=== PATIENT | female | born 1990 | race Caucasian/White ===

== ENCOUNTER 2025-04-29 09:32 | Emergency (ER) | payer OTHER ==
[~2025-04-29] VITALS: Ht 154.9 cm; Wt 75.0 kg
[2025-04-29 09:43] VITALS: BP 148/84; PULSE 87; RESP 18; TEMP 98.4; O2SAT 99
[2025-04-29 10:08] LABS: COVID AG,FIA SOURCE NASAL SWAB
[2025-04-29 10:17] LABS: PLATELET COUNT (AUTO) 204 K/uL (150-450); RED BLOOD CELL COUNT(AUTO) 4.55 MIL/uL (4.00-5.20); RED CELL DISTRIBUTION WIDTH 13.4 % (11.5-14.5); WHITE BLOOD COUNT (AUTO) 5.6 K/uL (4.5-11.0)
[2025-04-29 10:20] LABS: CALCIUM, TOTAL 8.5 mg/dL (8.8-10.5); CREATININE 0.65 mg/dL (0.60-1.30); GLOMERULAR FILTR. RATE CALC > 60 mL/min (>60); GLUCOSE,RANDOM 97 mg/dL (70-110); SODIUM SERUM 144 mmol/L (136-145); UREA NITROGEN, BLOOD 10 mg/dL (7-18)
[2025-04-29 10:28] LABS: SARS-COV2 (COVID) ANTIGEN,FIA Negative (Negative)
== END 2025-04-29 11:04 | disposition home or self-care (01) ==
LOC: EMS 09:32
DX: F31.9 Bipolar disorder, unspecified (principal); G47.00 Insomnia, unspecified; F41.9 Anxiety disorder, unspecified; F12.90 Cannabis use, unspecified, uncomplicated; F22 Delusional disorders; Z98.890 Other specified postprocedural states; Z20.822 Contact with and (suspected) exposure to COVID-19
CPT/HCPCS: 99285; 87426; 80048; 84703; 85025; 36415; G0480

== ENCOUNTER 2025-05-30 22:12 | Emergency (ER) | payer OTHER ==
[~2025-05-30] VITALS: Ht 154.9 cm; Wt 77.2 kg
[2025-05-30 22:21] VITALS: TEMP 98.2
[2025-05-30 23:00] LABS: APPEARANCE,URINE CLEAR (CLEAR); GLUCOSE, URINE (UA) NEGATIVE (NEGATIVE); HCG,QUAL URINE NEGATIVE (NEGATIVE); LEUKOCYTE ESTERASE ,URINE TRACE (NEGATIVE); NITRATE,URINE NEGATIVE (NEGATIVE); OCCULT BLOOD,URINE NEGATIVE (NEGATIVE); SPECIFIC GRAVITIY, URINE 1.019 (1.003-1.030)
[2025-05-30 23:05] VITALS: BP 151/92; PULSE 95; RESP 18; O2SAT 100
[2025-05-30 23:08] LABS: SQUAMOUS EPITHELIAL CELL,UR Moderate /LPF (None Seen)
[2025-05-30] MEDS ORDERED: CEPH-558 PO (23:26)
[2025-05-30] MEDS: CEPHALEXIN MONOHYDRATE 500 MG CAPSULE PO ONE (23:36)
== END 2025-05-31 00:45 | disposition home or self-care (01) ==
LOC: EMS 23:56
DX: N39.0 Urinary tract infection, site not specified (principal); F12.90 Cannabis use, unspecified, uncomplicated; F31.9 Bipolar disorder, unspecified; Z98.890 Other specified postprocedural states
CPT/HCPCS: 81001; 84703; 99283